=== PATIENT | female | born 1950 | race Asian ===

== ENCOUNTER 2020-04-19 15:52 | Outpatient (REF) | payer MEDICARE, SELFPAY ==
--- NOTE | 2020-04-19 15:56 | MM_ITS ---
EXAMINATION: MM SCREENING DIGITAL BREAST TOMOSYNTHESIS, BILATERAL CLINICAL INFORMATION: Screening. Asymptomatic. The lifetime risk of breast cancer based on the Tyrer-Cuzick Model is 2%. COMPARISON: Mammography: 02/04/2019, 02/02/2018, 01/21/2017 TECHNIQUE: Digital mammography is performed in craniocaudal and mediolateral oblique views along with computer-aided detection (CAD). Digital breast tomosynthesis is performed in implant-displaced craniocaudal and implant-displaced mediolateral oblique views along with computer-aided detection (CAD). Synthesized 2D images are generated from the tomosynthesis. FINDINGS: There are scattered areas of fibroglandular density (ACR BI-RADS breast composition Category b). There are no significant masses, abnormal calcifications, or other abnormalities. The implant contours are smooth and similar to prior studies. There are some incidental benign capsular calcification on the left. No developing density. The skin contours are smooth. No significant changes. MM/MM tomosynthesis screen imp BI IMPRESSION: No mammographic evidence of malignancy. ASSESSMENT: BI-RADS 2: Benign RECOMMENDATION: Routine annual mammography screening. This patient's information was entered into a reminder system with a target due date for their next mammogram.
== END 2020-04-19 15:53 | disposition home or self-care (01) ==
LOC: HO.MAMMO 15:52
PROVIDERS: PCP Nurse Practitioner Family; Visit Provider Nurse Practitioner Family
DX: Z12.31 Encounter for screening mammogram for malignant neoplasm of breast (principal)
CPT/HCPCS: 77063; 77067

== ENCOUNTER 2021-05-03 15:54 | Outpatient (REF) | payer MEDICARE, SELFPAY ==
--- NOTE | ~2021-05-03 | MM_ITS ---
EXAMINATION: MM SCREENING DIGITAL BREAST TOMOSYNTHESIS, BILATERAL CLINICAL INFORMATION: Screening. Asymptomatic. The lifetime risk of breast cancer based on the Tyrer-Cuzick Model is 2%. COMPARISON: Mammography: 04/19/2020, 02/04/2019, 02/02/2018 TECHNIQUE: Digital mammography is performed in craniocaudal and mediolateral oblique views along with computer-aided detection (CAD). Digital breast tomosynthesis is performed in implant-displaced craniocaudal and implant-displaced mediolateral oblique views along with computer-aided detection (CAD). Synthesized 2D images are generated from the tomosynthesis. FINDINGS: There are scattered areas of fibroglandular density (ACR BI-RADS breast composition Category b). There are no significant masses, abnormal calcifications, or other abnormalities. There are bilateral implants. Implant contours are similar to prior study. Again, there is some benign coarse capsular calcification of the left implant. The axilla and skin contours are unremarkable. MM/MM tomosynthesis screen imp BI IMPRESSION: No mammographic evidence of malignancy. ASSESSMENT: BI-RADS 2: Benign RECOMMENDATION: Routine annual mammography screening. This patient's information was entered into a reminder system with a target due date for their next mammogram.
== END 2021-05-03 15:55 | disposition home or self-care (01) ==
LOC: HO.MAMMO 15:54
PROVIDERS: PCP Nurse Practitioner Family; Visit Provider Nurse Practitioner Family
DX: Z12.31 Encounter for screening mammogram for malignant neoplasm of breast (principal)
CPT/HCPCS: 77063; 77067

== ENCOUNTER 2022-05-15 14:26 | Outpatient (REF) | payer MEDICARE, SELFPAY ==
--- NOTE | ~2022-05-15 | MM_ITS ---
EXAMINATION: MM SCREENING DIGITAL BREAST TOMOSYNTHESIS, BILATERAL CLINICAL INFORMATION: Screening. Asymptomatic. The lifetime risk of breast cancer based on the Tyrer-Cuzick Model is 2%. COMPARISON: Mammography: 05/03/2021, 04/19/2020, 02/04/2019 TECHNIQUE: Digital mammography is performed in craniocaudal and mediolateral oblique views along with computer-aided detection (CAD). Digital breast tomosynthesis is performed in implant-displaced craniocaudal and implant-displaced mediolateral oblique views along with computer-aided detection (CAD). Synthesized 2D images are generated from the tomosynthesis. FINDINGS: There are scattered areas of fibroglandular density (ACR BI-RADS breast composition Category b). There are no significant masses, abnormal calcifications, or other abnormalities. There are bilateral implants. The implant contours are similar to prior studies. There are some benign coarse capsular calcifications overlying the left implant. There is no developing density or architectural abnormality or significant changes from prior studies. MM/MM tomosynthesis screen imp BI IMPRESSION: No mammographic evidence of malignancy. ASSESSMENT: BI-RADS 2: Benign RECOMMENDATION: Routine annual mammography screening. This patient's information was entered into a reminder system with a target due date for their next mammogram.
--- NOTE | ~2022-05-15 | MM_ITS ---
EXAMINATION: BONE DENSITOMETRY CLINICAL INDICATION: Osteoporosis. COMPARISON: Previous BD dated 02/04/2019 and baseline BD dated 03/19/2007. TECHNIQUE: Using a [employer] DXA System (software version: 13.1) manufactured by [employer], dual-energy x-ray absorptiometry was performed of the lumbar spine and left hip. The images are of good technical quality. Summary results are attached. FINDINGS: AP SPINE L1-L4: Current: BMD 1.023 g/cm2, Z-score 0.8, T-score -1.3, osteopenia, 9.6% increase from previous, 0.5% decrease from baseline (<5% change is not significant). Prior: BMD 0.933 g/cm2. Baseline: BMD 1.028 g/cm2. LEFT FEMUR, NECK: Current: BMD 0.763 g/cm2, Z-score 0.1, T-score -2.0, osteopenia. Prior: BMD 0.673 g/cm2. Baseline: BMD 0.788 g/cm2. LEFT FEMUR, TOTAL: Current: BMD 0.877 g/cm2, Z-score 0.9, T-score -1.0, normal, 11.7% increase from previous, 1.5% increase from baseline (<5% change is not significant). Prior: BMD 0.785 g/cm2. Baseline: BMD 0.864 g/cm2. IDENTIFIED RISK FACTORS: Bilateral oophorectomy, hysterectomy, low calcium intake, menopause. HISTORY OF FRACTURE: None listed. MEDICATIONS: Calcium, vitamin D, bisphosphonate. MM/XR DEXA axial skeleton IMPRESSION: 1. DIAGNOSIS: Osteopenia based on the lowest T-score value of -2.0 in the femoral neck applying World Health Organization criteria. 2. 10-YEAR FRACTURE RISK PREDICTION, FRAX: Not performed in this patient on estrogen or bone building treatments. 3. Treatment Recommendations: NOF guidelines recommend consideration for treatment in postmenopausal women and men age 50 and older presenting with the following: -A hip or vertebral (clinical or morphometric) fracture. -T-score less than or equal to -2.5 at the femoral neck or spine after appropriate evaluation to exclude secondary causes. -Low bone mass at the hip or spine and a 10-year fracture probability by FRAX of greater than or equal to 3% for hip fracture or greater than or equal to 20% for major osteoporotic fracture based on the [place] adapted WHO algorithm. 4. Other Recommendations: All treatment decisions require clinical judgment and consideration of individual patient factors, including patient preferences, comorbidities, previous drug use, risk factors not captured in the FRAX model (e.g. frailty, falls, vitamin D deficiency, increased bone turnover, interval significant decline in bone density) and possible under or overestimation of fracture risk by FRAX. Additional medical evaluation for secondary cause of low bone mineral density may be appropriate. FUTURE SCAN RECOMMENDATION: People with diagnosed cases of osteoporosis or at high risk for fracture should have regular bone mineral density tests. For patients eligible for Medicare, routine testing is allowed once every 2 years. The testing frequency can be increased to one year for patients who have rapidly progressing disease, those who are receiving or discontinuing medical therapy to restore bone mass, or have additional risk factors.
== END 2022-05-15 14:27 | disposition home or self-care (01) ==
LOC: HO.MAMMO 14:26
PROVIDERS: PCP Internal Medicine; Visit Provider Nurse Practitioner Family
DX: Z12.31 Encounter for screening mammogram for malignant neoplasm of breast (principal); Z13.820 Encounter for screening for osteoporosis; Z78.0 Asymptomatic menopausal state; M81.0 Age-related osteoporosis without current pathological fracture
CPT/HCPCS: 77063; 77067; 77080

== ENCOUNTER → 2023-04-06 13:21 | Outpatient (BNVA) | payer MEDICARE, SELFPAY | PROVIDERS: PCP Internal Medicine; Visit Provider Nurse Practitioner Family ==

== ENCOUNTER 2023-05-21 14:18 | Outpatient (REF) | payer MEDICARE, SELFPAY ==
--- NOTE | ~2023-05-21 | MM_ITS ---
EXAMINATION: MM SCREENING DIGITAL BREAST TOMOSYNTHESIS, BILATERAL WITH BREAST IMPLANTS CLINICAL INFORMATION: Screening. Asymptomatic. COMPARISON: Mammography: This study is compared with prior mammograms dating back to 2019. TECHNIQUE: Digital mammography is performed in craniocaudal and mediolateral oblique views along with computer-aided detection (CAD). Digital breast tomosynthesis is performed in implant-displaced craniocaudal and implant-displaced mediolateral oblique views along with computer-aided detection (CAD). Synthesized 2D images are generated from the tomosynthesis. FINDINGS: The breasts are almost entirely fatty (ACR BI-RADS breast composition Category a). There are no significant masses, abnormal calcifications, or or other mammographic signs of malignancy. MM/MM tomosynthesis screen imp BI IMPRESSION: There are no significant changes from prior study. ASSESSMENT: BI-RADS BI-RADS 1 - Negative RECOMMENDATION: Routine annual mammography screening. 1 year F/U This patient's information was entered into a reminder system with a target due date for their next mammogram.
== END 2023-05-21 14:19 | disposition home or self-care (01) ==
LOC: HO.MAMMO 14:18
PROVIDERS: PCP Internal Medicine; Visit Provider Internal Medicine
DX: Z12.31 Encounter for screening mammogram for malignant neoplasm of breast (principal)
CPT/HCPCS: 77063; 77067

== ENCOUNTER → 2023-05-21 14:30 | Outpatient (BNV) | payer MEDICARE, SELFPAY | PROVIDERS: PCP Internal Medicine; Visit Provider Radiology Diagnostic Radiology | DX: Z12.31 Encounter for screening mammogram for malignant neoplasm of breast (principal) | CPT/HCPCS: 77063; 77067 ==

== ENCOUNTER 2023-09-07 07:06 | Day surgery (SDC) | payer MEDICARE, SELFPAY ==
[2023-09-03 10:49] VITALS: BMI 22.1
[2023-09-07 07:20] VITALS: BMI 22.3
--- NOTE | 2023-09-07 07:34 | MHC.SHP ---
Pre-Procedural Eval Section A - 24 Hr Update-Section A only Date of Service: 09/07/23 The patient is an INPATIENT: No The patient has been examined within 24 hours of the surgical procedure. The History & Physical has been completed within 30 days and I have reviewed it.: No Section B - Complete if H&P > 30 days Chief Complaint: Colon cancer screening Relevant Family History (Specify if Yes): No Relevant Social History: None Present Medications: see Short Stay Collaborative assessment Medical History: Significant History (Osteopenia Hypercholesteremia) History of Previous Operations: Relevant previous surgery/procedure and date(s) (History of colonoscopy) Allergies: Allergies Allergy/AdvReac Type Severity Reaction Status Date / Time Penicillins Allergy Unknown Unknown Verified 04/06/23 13:30 Review of Systems Sugical H&P ROS: Negative: Constitution, Cardiovascular, Respiratory and Gastrointestinal Exam Surgical H&P Exam: Normal: Heart, Normal: Lungs, Normal: Extremities and Normal: Abdomen Plan Diagnosis/Plan: Unchanged I have reviewed the history and physical and performed a pertinent physical examination on my patient. No changes have occurred unless specified. Time Spent With Patient Time: Total time managing care of this patient today ____ minutes.
[2023-09-07 07:36] VITALS: BP 158/69; PULSE 91; RESP 16; TEMP 36.8; O2SAT 99
[2023-09-07] MEDS: Lactated Ringers 1,000 ML 50 ML IVCONT (07:46)
--- NOTE | 2023-09-07 08:40 | HO.ANESPROP2 ---
[facility] Past Medical History Medical History (Updated 04/06/23 @ 13:42 by Monet Smith [facility]) Osteopenia Hypercholesteremia Family History Family history of problems with anesthesia: No Surgical History Surgical History (Updated 09/07/23 @ 08:01 by Amy Haskins RN) H/O toe surgery History of colonoscopy History of Problems with Anesthesia: No Social History Social History Alcohol intake: never Patient Tobacco Use Status: Never used Tobacco Use of substances other than those prescribed or required for medical reasons: No Are you DNR?: No Advance Directives: No Advance Directives Information Provided: Yes Meds Allergies Allergy/AdvReac Type Severity Reaction Status Date / Time Penicillins Allergy Unknown Unknown Verified 04/06/23 13:30 Active Medications: Current Medications Lactated Ringer's (Lr) 1,000 mls @ 50 mls/hr IVCONT .Q20H JOCELIN Last Admin: 09/07/23 07:46 Dose: 50 mls/hr Home Medications ?Medication ?Instructions ?Recorded ?Confirmed ?Last Taken ?Type aspirin 81 mg tablet,delayed 81 mg PO DAILY 04/06/23 09/03/23 Unknown History release (Adult Aspirin Regimen) cholecalciferol (vitamin D3) 25 25 mcg PO DAILY 04/06/23 09/03/23 Unknown History mcg (1,000 unit) capsule magnesium 600 mg PO DAILY 04/06/23 09/03/23 Unknown History multivitamin 1 tab PO DAILY 04/06/23 09/03/23 Unknown History omega-3 fatty acids-fish oil 300 1 cap PO DAILY 04/06/23 09/03/23 Unknown History mg-500 mg capsule (Fish Oil) risedronate 35 mg tablet 35 mg PO QWEEK 04/06/23 09/03/23 Unknown History rosuvastatin 10 mg tablet 10 mg PO BEDTIME 04/06/23 09/03/23 Unknown History vitamin B complex (B 1 tab PO DAILY 04/06/23 Unknown History Complex-Vitamin B12 tablet) Exam Height,Weight and Vital Signs: Height 5 ft 1 in Weight 53.581 kg Last Vital Signs Temp 98.2 F 09/07/23 07:36 Pulse 91 09/07/23 07:36 Resp 16 09/07/23 07:36 BP 158/69 H 09/07/23 07:36 Pulse Ox 99 09/07/23 07:36 O2 Del Method Room Air 09/07/23 07:36 Airway Mallampati Class: II TM Dist: >3cm Neck ROM: Full Heart: rrr Lungs: cta Assessment and Plan Assessment Anesthesia Assessment: Anesthesia Plan Discussed and Chart Reviewed Final Anesthetic Review Family History of Problems with Anesthesia: No History of Problems with Anesthesia: No NPO: Yes ASA Class: II Final Preanesthetic Review: No Changes in Pt Med Stat, Meds/Allgs Chart Reviewed and Consent Obtained/Reviewed Patient Risk: Low Procedure Risk: Low Anesthetic Plan Anesthetic Plan: MAC: Disposition: Standard PACU
[2023-09-07 09:15] VITALS: BP 99/51; PULSE 69; RESP 16; TEMP 36.1; O2SAT 97
--- NOTE | 2023-09-07 09:16 | P.OPN-COLO_ITS ---
Colonoscopy Operative Note Operative Note Date of Service: 09/07/23 Narrative: COLONOSCOPY TILL CECUM WITH BIOPSIES Pre-op diagnosis: Colon cancer screening (2nd colonoscopy). Post-op diagnosis:? colon polyps, Diverticulosis, hemorrhoids Endoscopist:? Santiago Stinson MD Anesthesia:?MAC Consent: Indications for the procedure and potential complications of bleeding, perforation, reaction to medications and missed diagnosis were discussed with the patient and informed consent was obtained. Instrument: Olympus PCF H 190 L variable stiffness pediatric colonoscope Monitoring: Vital signs and clinical assessment, intermittent blood pressure monitoring, continuous EKG monitoring, Pulse oximetry and Carbon Dioxide monitoring were done throughout the procedure. Please see anesthesia flowsheet. Colon withdrawl time was 13 minutes. Procedure: The patient was placed in the left lateral decubitis position and pre-procedure medications were administered. After a digital rectal examination of the ano-rectum, the video colonoscope was inserted into the rectum and advanced through the colon to the cecum. The colonoscope was slowly withdrawn in a retrograde panoramic fashion and the colon mucosa was carefully examined including a retroflexed view of the rectum. Findings and interventions are described below. Procedure Difficulty: without difficulty Findings: Terminal Ileum: Not evaluated Cecum: Normal Ascending Colon: Normal Transverse Colon: Normal Descending Colon: Moderate diverticulosis Sigmoid Colon: A 5-6 mm diminutive appearing polyp versus fold at 50 cms - biopsied. A 3-4 mm sessile polyp at 20 cms - removed with a cold biopsy. Moderate diverticulosis Rectum: Normal Ano-rectum: Small internal hemorrhoids and hypertrophied anal papillae Colon preparation: Excellent. [place] Bowel Preparation Scale Right colon; 3 Transverse colon: 3 Left colon; 3 (0 = Unprepared colon segment with mucosa not seen due to solid stool that cannot be cleared. 1 = Portion of mucosa of the colon segment seen, but other areas of the colon segment not well seen due to staining, residual stool and/or opaque liquid. 2 = Minor amount of residual staining, small fragments of stool and/or opaque liquid, but mucosa of colon segment seen well. 3 = Entire mucosa of colon segment seen well with no residual staining, small fragments of stool or opaque liquid) Impression and Post Procedure Diagnosis: Colonoscopy Findings: One small polyp was removed A 5-6 mm diminutive appearing polyp versus fold at 50 cms - biopsied. Moderate diverticulosis seen in the left colon Small hemorrhoids on retroflexed exam. Plan: Pt has a FU appointment on 09/21/23 with Gloria Smith NP Repeat Colonoscopy in 5 years if polyps are adenomatous and 10 year if polyps are hyperplastic. Above findings were reviewed with the patient and relevant handouts were given and the discharge area.
[2023-09-07 09:20] VITALS: BP 103/55; PULSE 64; RESP 14; O2SAT 98
[2023-09-07 09:25] VITALS: BP 111/57; PULSE 65; RESP 17; O2SAT 97
[2023-09-07 09:30] VITALS: BP 117/69; PULSE 76; RESP 15; TEMP 36.1; O2SAT 100
[2023-09-07 09:45] VITALS: BP 130/67; PULSE 75; RESP 14; TEMP 36.1; O2SAT 100
== END 2023-09-07 10:05 | disposition home or self-care (01) ==
PROVIDERS: PCP Internal Medicine; Visit Provider Internal Medicine Gastroenterology
PROC: 0DJD8ZZ Inspection of Lower Intestinal Tract, Via Natural or Artificial Opening Endoscopic (ICD-10-PCS; CPT 45378; principal; 2023-09-07 08:30)
DX: Z12.11 Encounter for screening for malignant neoplasm of colon (principal); D12.5 Benign neoplasm of sigmoid colon; K57.30 Diverticulosis of large intestine without perforation or abscess without bleeding; K64.8 Other hemorrhoids; E78.00 Pure hypercholesterolemia, unspecified
CPT/HCPCS: 45380; 88305; J2704

== ENCOUNTER → 2023-09-07 07:06 | Outpatient (BNV) | payer MEDICARE, SELFPAY | PROVIDERS: PCP Internal Medicine; Visit Provider Internal Medicine Gastroenterology | DX: Z12.11 Encounter for screening for malignant neoplasm of colon (principal); D12.5 Benign neoplasm of sigmoid colon; K57.90 Diverticulosis of intestine, part unspecified, without perforation or abscess without bleeding; K64.8 Other hemorrhoids | CPT/HCPCS: 45380 ==

== ENCOUNTER 2024-06-07 12:26 | Outpatient (REF) | payer MEDICARE, SELFPAY ==
--- NOTE | ~2024-06-07 | MM_ITS ---
EXAMINATION: DXA BONE DENSITY AXIAL HISTORY: Estrogen deficiency TECHNIQUE: [employer] Dual energy absorptiometry (DEXA) of the lumbar spine, total left hip, and femoral neck was performed. COMPARISON: Comparison is made with the prior examination dated 05/15/2022. FINDINGS: The bone mineral density of the lumbar spine is 0.962 with a T-score of -1.7, and a Z-score of 0.4. This represents a BMD change of -0.8% compared to the prior exam. This is not statistically significant. The bone mineral density of the left total hip is 0.892 with a T-score of -0.9, and a Z-score of 1.1. This represents a BMD change of 1.7% compared to the prior exam. This is not statistically significant. The bone mineral density of the left femoral neck is 0.770 with a T-score of -1.9, and a Z-score of 0.2. This represents a BMD change of 0.9% compared to the prior exam. FRACTURE RISK: The FRAX index suggests a ten year probability of major osteoporotic fracture of 7.2%, and of hip fracture 1.9%. MM/XR DEXA axial skeleton IMPRESSION: Based on bone mineral density, and according to World Health Organization (WHO) criteria, the diagnosis is consistent with osteopenia. All bone density values are in grams per centimeter squared (g/cm2). Statistically, 68% of repeat scans fall within 1 SD (+/- 0.010 g/cm2 for AP spine L1-L4) and 1 SD (+/- 0.012 g/cm2 for femur total) FRAX is a trademark of the [employer] Met[employer], a World Health Organization (WHO) Collaborating Center. Electronically signed by: Pa Rendon MD 06/07/2024 02:55 PM EDT
--- OUTSIDE RECORDS SUMMARY | 2024-06-07 14:42 | XMS_ITS | Clinical Summary ---
Author Organization [facility] Address [address] [place] [address] Care Team Providers Care Control Director Name Role Phone Unavailable Primary Care Provider Unavailabl e Allergies Active Allergy Reactions Criticality Noted Date Comments Other Swelling 01/12/2018 Dirt Medications rosuvastatin (Crestor) 10 MG tablet Take 10 mg by mouth in the morning. 04/14/2022 Active risedronate (Actonel) 35 MG tablet Take 35 mg by mouth every 7 (seven) days. 04/14/2022 Active Multiple Vitamins-Mineral s (Oncovite) tablet Take 1 tablet by mouth in the morning. Active magnesium oxide (Mag-Ox) 400 MG tablet Take by mouth daily. Active cholecalciferol (Vitamin D-3) 50 MCG (2000 UT) capsule Take 2,000 Units by mouth in the morning. Active aspirin 81 MG EC tablet Take 81 mg by mouth in the morning. Active calcium carbonate (Tums) 250 mg (yankton 100 mg) chewable split tablet Take 500 mg by mouth in the morning. Active Immunizations Name Administration Dates Next Due Influenza High-dose Quadriva lent Preservative Free 01/01/2022,01/11/2020 Influenza Quadrivalent Adjuvanted 01/02/2021 Influenza, High Dose Seasona l, Preservative Free 01/20/2019,01/12/2018,01/08/2016 Influenza, IIV3, injectable 12/23/2013, 2,02/26/2011 Influenza, seasonal, intrade rmal, preservative free 12/15/2012 Pneumococcal Conjugate PCV 13 12/29/2014 Pneumococcal Polysaccharide PPSV23 01/20/2019, Tdap 12/16/2019 Zoster, Recombinant 05/02/2020,01/24/2020 Zoster, live 01/08/2016 Social History Tobacco Use Types Packs/Day Years Used Date Smoking Tobacco: Never Assessed Comments Unknown Sex and Gender Information Value Date Recorded Sex Assigned at Female 07/01/2022 10:01 AM EDT Legal Sex Female 9:54 AM EDT Gender Identity Female 07/01/2022 10:01 AM EDT Sexual Orientation Choose not to disclose 2022 10:01 AM EDT Last Filed Vital Signs Vital Sign Reading Time Taken Comments Blood Pressure 138/82 07/01/2022 1:07 PM EDT Pulse - - Temperature - - Respiratory Rate - - Oxygen Saturation - - Inhaled Oxygen Concentration - - Weight - - Height - - Body Mass Index - - Plan of Treatment Health Maintenance Due Date Last Done Comments CT Colonography 1949 Colonoscopy 1949 Colorectal Cancer Screening 1949 Dental Oral Exam 1949 Dental Prophylaxis 1949 Dental X-Ray: Full Mouth 1949 Depression Screening 1949 FIT DNA/Cologuard 1949 FIT 1949 FOBT 1949 SDOH Screening 1949 Sigmoidoscopy 1949 Alcohol/Substance Use Screening 1961 Tobacco Screening 1961 Hepatitis C Screening 1967 Dental X-Ray: Bitewings 07/03/2023 07/01/2022 COVID-19 Vaccine ( season) 2023 01/01/2022, 07/04/2021, 12/26/2020, Additional history exists Influenza Vaccine (#1) 2023 , 01/02/2021, 01/11/2020, Additional history exists RSV Patients and Patients Aged 60 years or older (1 - 1-dose 75+ series) 2024 DTaP/Tdap/Td Vaccines (2 - Td or Tdap) 12/15/2029 12/16/2019 Pneumococcal Vaccine: 50+ Years Completed 01/20/2019, 12/29/2014, 12/23/2013 Zoster Vaccines Completed 05/02/2020, 11/0 05/2019, 01/08/2016 HIB Vaccines Aged Out No longer eligi ble based on patient's age to complete this topic HPV Vaccines Aged Out No longer eligi ble based on patient's age to complete this topic Hepatitis A Vaccines Aged Out No long er eligible based on patient's age to complete this topic Hepatitis B Vaccines Aged Out No long er eligible based on patient's age to complete this topic IPV Vaccines Aged Out No longer eligi ble based on patient's age to complete this topic Meningococcal Vaccine Aged Out No arlene joann eligible based on patient's age to complete this topic RSV under 20 months Aged Out No longe r eligible based on patient's age to complete this topic Rotavirus Vaccines Aged Out No longer eligible based on patient's age to complete this topic Procedures Procedure Name Priority Date/Time Associated Diagnosis Comments BITEWING - SINGLE RADIOGRAPHIC IMAGE Routine 07/01/2022 1:00 PM EDT Dental abscess from Last 3 Months or Most Recently Relevant to Health Maintenance Insurance [facility]
--- OUTSIDE RECORDS SUMMARY | 2024-06-07 14:42 | XMS_ITS | Clinical Summary ---
Author Organization [facility] [address] [place] [address] [place] [address] Phone Care Team Providers Care Softball Player Name Role Phone Nunu Stinson MD Primary Care Provider [phone] Allergies No known active allergies Medications aspirin 81 mg EC tablet Take 1 tablet (81 mg total) by mouth 1 (one) time each day. Active CALCIUM CARBONATE ORAL Calcium Carbonate 500 (200 Ca) MG Wafer Sig - Route: Take ??by mouth. - Oral Class: Historic Active magnesium oxide (MAG-OX) 400 mg magnesium tablet Take by mouth. Active cholecalciferol (VITAMIN D-3) 25 mcg (1,000 unit) capsule Take by mouth. Activ e multivit-min/iron /folic acid/K (ADULTS MULTIVITAMIN ORAL) Take by mouth. Activ e rosuvastatin (CRESTOR) 10 mg tablet Take 1 tablet (10 mg total) by mouth 1 (one) time each day. 90 tablet 1 Active Encounters Date Type Department Care Team Description 04/18/2024 Telephone Adult Medicine [address] [phone] Nunu Stinson MD 04/12/2024 3:00 PM EST Office Visit Adult [address] [phone] Nunu Stinson MD PE (physical exam), annual (Primary Dx); Mixed hyperlipidemia; Other specified disorders of bone density and structure, other site; Prediabetes; Callus; Ingrown toenail without infection from Last 3 Months Immunizations Name Administration Dates Next Due COVID-19 (Moderna/Spikevax) 12yo and older 10/20/2022,01/01/2022 Influenza trivalent, 0.5mL ( Fluad) 65yo and older 11/28/2023,12/03/2022,01/01/2022,01/02,01/11/2020,01/20/2019,01/12/2018 ,01/08/2016 Pneumococcal conjugate 13 va lent (Prevnar 13, PCV13) 2mo and older 12/29/2014 Pneumococcal polysaccharide 23 valent (Pneumovax 23) 2yo and older 01/20/2019,12/23/2013 RSV, bivalent, protein subun it RSVpreF, 0.5mL, Preservative Free (Arexvy) 60yo and older 12/27/2022 Respiratory syncytial virus (RSV), unspecified 12/27/2022 Tdap Tetanus diptheria acell ular pertussis (Boostrix; Adacel) 7yo and older 12/16/2019 Zoster Live 01/08/2016 Zoster recombinant (Shingrix ) 19yo and older 05/02/2020,01/24/2020 Surgical History Surgery Date Site/Laterality Comments HYSTERECTOMY Medical History Medical History Date Comments Hyperlipidemia Family History Medical History Relation Name Comments Heart disease Brother Heart attack Mother Relation Name Status Comments Brother Mother Social History Tobacco Use Types Packs/Day Years Used Date Smoking Tobacco: Never Smokeless Tobacco: Never Tobacco Cessation:Counseling Given: Not Answered Alcohol Use Standard Drinks/Week Comments Not Currently 0 (1 standard drink = 0.6 oz pur e alcohol) Housing Instability Answer Date Recorde d Are you worried that in the next 2 months you may not have stable housing? No 04/12/2024 Food Access & Nutrition Answer Date Rec orded Do you have access to a vari ety of food including fruits and vegetables? Yes 04/12/2024 Health Literacy Answer Date Recorded How often do you need to hav e someone help you when you read instructions, pamphlets, or other written material from your doctor or pharmacy? Never 04/12/2024 Caregiver: How often do you need to have someone help you when you read instructions, pamphlets, or other written material from your doctor or pharmacy? Not on file 04/12/2024 Financial Risk Answer Date Recorded How hard is it for you to pa y for the very basics like food, housing, medical care, and air conditioning / heating? Not very hard 04/12/2024 Transportation Answer Date Recorded Has the lack of transportati on kept you from meetings, work, or from getting things needed for daily living? No Has the lack of transportati on kept you from medical appointments or from getting medications? No 04/12/2024 Social Isolation Answer Date Recorded How often do you feel lonely or isolated from th ose around you? Never 04/12/2024 Food Risk Answer Date Recorded Within the past 12 months we worried whether our food would run out before we got money to buy more. Never true 04/12/2024 Within the past 12 months th e food we bought just didn? t last and we didn? t have money to get more. Not on file 04/12/2024 Dependent Care Answer Date Recorded Do you need help finding or paying for care for your loved ones. For example, childbirth and infant care teacher or elderly care for an older adult? No 04/12/2024 Education Answer Date Recorded Do you think completing more education or training, like finishing a GED, going to college, or learning a trade, would be helpful for you? No 04/12/2024 Employment and Income Answer Date Recor ded During the last four weeks, have you been actively looking for work? No 04/12/2024 Living Situation Answer Date Recorded What is your living situation? 0 04/12/2024 Comments No Sex and Gender Information Value Date Recorded Sex Assigned at Not on file Legal Sex Female 11:07 AM EDT Gender Identity Not on file Sexual Orientation Not on file Obstetrics History Last Filed Vital Signs Vital Sign Reading Time Taken Comments Blood Pressure 124/72 04/12/2024 3:27 PM EST Pulse 80 04/12/2024 3:27 PM EST Temperature 36.4 ??C (97.5 ??F) 04/12/2024 3:27 PM ES T Respiratory Rate 14 04/12/2024 3:27 PM EST Oxygen Saturation - - Inhaled Oxygen Concentration - - Weight 51.7 kg (114 lb) 04/12/2024 3:27 PM EST Height 154.9 cm (5' 1 ) 04/12/2024 3:27 PM EST Body Mass Index 21.54 04/12/2024 3:27 PM EST Plan of Treatment Upcoming Encounters Date Type Department Care Team (Late st Contact Info) Description 10/11/2024 2:30 PM EDT Office Visit Adult Medicine [facility] [address] [place] [phone] Nunu Stinson MD [address] [place] [address] Health Maintenance Due Date Last Done Comments Diabetes: Annual Foot Exam 1959 Diabetes: Annual Retina Eye Exam 1959 Falls Risk Assessment 10/23/2023 Medicare Annual Wellness Visit 10/23/2023 Osteoporosis Screening (Bone Density Screening) 10/23/2023 Diabetes: Annual Urine Albumin-Creatinine Ratio (uACR) 04/12/2024 Diabetes: Blood Sugar Control Test (HGBA1C) 10/10/2024 04/12/2024, 09/03/2023, 01/27/2023 Depression Screening 04/12/2025 04/12/2024 Diabetes: Annual GFR (Glomerular Filtration Rate) 04/12/2025 04/12/2024, 09/03/2023, 03/26/2022, Additional history exists Hypertension/CHF/CAD Annual BMP Blood Test 04/12/2025 04/12/2024, 09/03/2023, 03/26/2022, Additional history exists Social Influencers of Health Screening 04/12/2025 04/12/2024 Colorectal Cancer Screening: Colonoscopy 09/06/2028 09/07/2023 Cholesterol Screening (Lipid Panel) 04/12/2029 04/12/2024, 09/03/2023 DTaP,Tdap,and Td Vaccines (2 - Td or Tdap) 12/15/2029 12/16/2019 Hepatitis C Screening Completed 02/20/2017 Pneumococcal Vaccine: 50+ Years Completed 01/20/2019, 12/29/2014, 12/23/2013 Zoster Vaccines Completed 05/02/2020, 05/2019, 01/08/2016 RSV Immunization Patients 60+ Years Old Completed 12/27/2022, 12/27/2022 RSV Immunization Patients Under 20 months Aged Out 12/27/2022 No longer eligible based on patient's age to complete this topic COVID-19 Vaccine Completed 11/28/2023, 09/2022, 10/20/2022, Additional history exists Influenza Vaccine Completed 11/28/2023, , 01/01/2022, Additional history exists HIB Vaccines Aged Out No longer eligi [...] on patient's age to complete this topic MMR Vaccines Aged Out No longer eligi ble based on patient's age to complete this topic Meningococcal ACWY Vaccine Aged Out N o longer eligible based on patient's age to complete this topic Meningococcal B Vacine Aged Out No lo nger eligible based on patient's age to complete this topic Varicella Vaccines Aged Out No longer eligible based on patient's age to complete this topic Procedures Procedure Name Priority Date/Time Associated Diagnosis Comments CBC WITH AUTO DIFFERENTIAL Routine 04/12/2024 4:21 PM EST Mixed hyperlipidemia HEMOGLOBIN A1C Routine 04/12/2024 4:21 PM EST Prediabetes LIPID PANEL WITH REFLEX TO DIRECT LDL Routine 04/12/2024 4:21 PM EST Mixed hyperlipidemia COMPREHENSIVE METABOLIC PANEL Routine 04/12/2024 4:21 PM EST PE (physical exam), annual CBC AND DIFFERENTIAL Routine 04/12/2024 4:21 PM EST Mixed hyperlipidemia HM COLONOSCOPY Routine 09/07/2023 from Last 3 Months or Most Recently Relevant to Health Maintenance Results * Lipid panel with reflex to direct LDL (04/12/2024 4:21 PM EST) Cholesterol 191 0 - 200 mg/dL LAB CHEMISTRY METHOD 04/12/2024 7:08 PM EST [facility] Triglycerides 119 0 - 150 mg/dL LAB CHEMISTRY METHOD 04/12/2024 7:[address] [facility] HDL 72 >=40 mg/dL LAB CHEMISTRY METHOD 04/12/2024 7:[address] [facility] LDL Calculated 95 0 - 100 mg/dL LAB CHEMISTRY METHOD 04/12/2024 7:[address] [facility] VLDL Cholesterol Mich 23.8 mg/dL LAB CHEMISTRY METHOD 04/12/2024 7:[address] [facility] Non HDL Chol. (LDL+VLDL) 119 <145 mg/dL LAB CHEMISTRY METHOD 04/12/2024 7:[address] [facility] Chol/HDL Ratio 2.7 0.0 - 4.4 LAB CHEMISTRY METHOD 04/12/2024 7:[address] [facility] Blood Venous blood specimen / Unknown Venipuncture / Unknown 04/12/2024 4:21 PM EST 04/12/2024 4:21 PM EST us Nunu Stinson MD LAB BLOOD ORDERABLES Final Resul t [facility] [address] [place] [address], [place] [phone] * (ABNORMAL) CBC auto differential (04/12/2024 4:21 PM EST) WBC 6.9 4.8 - 10.8 K/mcL LAB HEMETOLOGY METHOD 04/12/2024 6:[address] [facility] RBC 4.80 3.80 - 4.80 M/mcL LAB HEMETOLOGY METHOD 04/12/2024 6:[address] [facility] Hemoglobin 13.1 11.5 - 16.0 g/dL LAB HEMETOLOGY METHOD 04/12/2024 6:[address] [facility] Hematocrit 42.2 35.0 - 47.0 % LAB HEMETOLOGY METHOD 04/12/2024 6:[address] [facility] MCV 88.5 79.0 - 98.0 FL LAB HEMETOLOGY METHOD 04/12/2024 6:[address] [facility] MCH 27.5 27.0 - 32.0 pcg LAB HEMETOLOGY METHOD 04/12/2024 6:[address] [facility] MCHC 31.0(L) 32.0 - 37.0 g/dL LAB HEMETOLOGY METHOD 04/12/2024 6:[address] [facility] RDW 13.3 11.0 - 15.0 % LAB HEMETOLOGY METHOD 04/12/2024 6:[address] [facility] Platelets 268 130 - 400 K/mcL LAB HEMETOLOGY METHOD 04/12/2024 6:[address] [facility] MPV 9.6 7.0 - 11.0 FL LAB HEMETOLOGY METHOD 04/12/2024 6:[address] [facility] NRBC 0.0 <1.0 % LAB HEMETOLOGY METHOD 04/12/2024 6:[address] [facility] NRBC Absolute 0.00 <0.10 K/mcL LAB HEMETOLOGY METHOD 04/12/2024 6:[address] [facility] Neutrophils Relative 46.7 % LAB HEMETOLOGY METHOD 04/12/2024 6:[address] [facility] Lymphocytes Relative 43.0 % LAB HEMETOLOGY METHOD 04/12/2024 6:[address] [facility] Monocytes Relative 8.1 % LAB HEMETOLOGY METHOD 04/12/2024 6:[address] [facility] Eosinophils Relative 1.5 % LAB HEMETOLOGY METHOD 04/12/2024 6:[address] [facility] Basophils Relative 0.6 % LAB HEMETOLOGY METHOD 04/12/2024 6:[address] [facility] Immature Granulocytes Relative 0.1 % LAB HEMETOLOGY METHOD 04/12/2024 6:36 PM EST [facility] Neutrophils Absolute 3.22 1.50 - 7.00 K/[facility] LAB HEMETOLOGY METHOD 04/12/2024 6:36 PM EST [facility] Lymphocytes Absolute 2.96 1.00 - 5.00 K/mcL LAB HEMETOLOGY METHOD 04/12/2024 6:36 PM EST [facility] Monocytes Absolute 0.56 0.20 - 1.00 K/mcL LAB HEMETOLOGY METHOD 04/12/2024 6:36 PM EST [facility] Eosinophils Absolute 0.10 0.00 - 0.50 K/[facility] HEMETOLOGY METHOD 04/12/2024 6:36 PM EST [facility] Basophils Absolute 0.04 0.00 - 0.20 K/mcL LAB HEMETOLOGY METHOD 04/12/2024 6:36 PM EST [facility] Immature Granulocytes Absolute 0.01 0.00 - 0.03 K/[facility] HEMETOLOGY METHOD 04/12/2024 6:[address] [facility] Blood Venous blood specimen / Unknown Venipuncture / Unknown 04/12/2024 4:21 PM EST 04/12/2024 4:21 PM EST us Nunu Stinson MD LAB BLOOD ORDERABLES Final Resul t [facility] [address] [place] [address], * Hemoglobin A1c (04/12/2024 4:21 PM EST) Hemoglobin A1C 6.3 <6.5 % LAB CHEMISTRY METHOD 04/12/2024 9:42 PM EST [facility] Mean Bld Glu Estim. 134 mg/dL LAB CHEMISTRY METHOD 04/12/2024 9:42 PM EST [facility] Blood Venous blood specimen / Unknown Venipuncture / Unknown 04/12/2024 4:21 PM EST 04/12/2024 4:21 PM EST us Nunu Stinson MD LAB BLOOD ORDERABLES Final Resul t [facility] [address] [place] [address], * (ABNORMAL) Comprehensive metabolic panel (04/12/2024 4:21 PM EST) Sodium 138 133 - 145 mmol/L LAB CHEMISTRY METHOD 04/12/2024 7:[address] [facility] Potassium 4.5 3.5 - 5.5 mmol/L LAB CHEMISTRY METHOD 04/12/2024 7:[address] [facility] Chloride 106 96 - 110 mmol/L LAB CHEMISTRY METHOD 04/12/2024 7:[address] [facility] CO2 28 21 - 32 mmol/L LAB CHEMISTRY METHOD 04/12/2024 7:[address] [facility] Anion Gap 4 3 - 11 LAB CHEMISTRY METHOD 04/12/2024 7:[address] [facility] Glucose 94 70 - 100 mg/dL LAB CHEMISTRY METHOD 04/12/2024 7:[address] [facility] BUN 17 5 - 25 mg/dL LAB CHEMISTRY METHOD 04/12/2024 7:[address] [facility] Creatinine 0.79 0.50 - 1.10 mg/dL LAB CHEMISTRY METHOD 04/12/2024 7:[address] [facility] eGFR 78 >=60 mL/min/1. 73m2 LAB CHEMISTRY METHOD 04/12/2024 7:[address] [facility] Comment:Calculation based on the??Chronic Kidney Disease Epidemiology Collaboration (CKD-EPI) equation refit??without adjustment for race. BUN/Creatinine Ratio 21.5 LAB CHEMISTRY METHOD 04/12/2024 7:[address] [facility] Calcium 9.2 8.5 - 10.5 mg/dL LAB CHEMISTRY METHOD 04/12/2024 7:[address] [facility] AST (SGOT) 23 10 - 42 unit/L LAB CHEMISTRY METHOD 04/12/2024 7:[address] [facility] ALT (SGPT) 28 10 - 60 unit/L LAB CHEMISTRY METHOD 04/12/2024 7:[address] [facility] Alkaline Phosphatase 64 42 - 121 unit/L LAB CHEMISTRY METHOD 04/12/2024 7:[address] [facility] Total Protein 7.7 6.0 - 8.0 g/dL LAB CHEMISTRY METHOD 04/12/2024 7:[address] [facility] Albumin 4.2 3.2 - 5.0 g/dL LAB CHEMISTRY METHOD 04/12/2024 7:[address] [facility] Total Bilirubin 1.8(H) 0.0 - 1.4 mg/dL LAB CHEMISTRY METHOD 04/12/2024 7:[address] [facility] Blood Venous blood specimen / Unknown Venipuncture / Unknown 04/12/2024 4:21 PM EST 04/12/2024 4:21 PM EST Nunu Stinson MD LAB BLOOD ORDERABLES Final Resul t [facility] [address] [place] [address], * Colonoscopy (09/07/2023) Colonoscopy no interpretation , abstracted Anatomical Region Laterality Modality Other Historical Provider HEALTH MAINTENANCE Final Result from Last 3 Months or Most Recently Relevant to Health Maintenance Insurance [employer] Care Teams Softball Player Relationship Specialty Start Date End Date Nunu Stinson MD PCP - General 09/04/23
--- OUTSIDE RECORDS SUMMARY | 2024-06-07 14:42 | XMS_ITS | Encounter Summary ---
Author Organization [facility] Address [address] [place] [address] Care Team Providers Care Administrative Secretary Name Role Phone Nunu Stinson MD Primary Care Provider [phone] Encounter Details Date Type Department Care Team (Late st Contact Info) Description 04/18/2024 Telephone Adult Medicine [facility] [address] [place] [phone] Nunu Stinson MD [address] [place] [address] Social History Tobacco Use Types Packs/Day Years Used Date Smoking Tobacco: Never Smokeless Tobacco: Never Alcohol Use Standard Drinks/Week Comments Not Currently [...] care for your loved ones. For example, child's nurse or elderly care for an older adult? [...] on file Sexual Orientation Not on file documented as of this encounter Plan of Treatment Upcoming Encounters Date Type Department Care Team (Late st Contact Info) Description 10/11/2024 2:30 PM EDT Office Visit Adult Medicine [address] [phone] Nunu Stinson MD [address] [place] [phone] documented as of this encounter Visit Diagnoses Not on filedocumented in this encounter Additional Health Concerns Assessment Noted Time PHQ-9 Depression Total Score: 0 04/12/19 25 3:31 PM EST documented as of this encounter Care Teams Administrative Secretary Relationship Specialty Start Date End Date Nunu Stinson MD PCP - General 09/04/23 documented as of this encounter
== END 2024-06-07 12:27 | disposition home or self-care (01) ==
LOC: HO.MAMMO 12:26
PROVIDERS: PCP Internal Medicine; Visit Provider Internal Medicine
DX: Z12.31 Encounter for screening mammogram for malignant neoplasm of breast (principal); Z13.820 Encounter for screening for osteoporosis; M85.80 Other specified disorders of bone density and structure, unspecified site; E28.39 Other primary ovarian failure
CPT/HCPCS: 77063; 77067; 77080

== ENCOUNTER → 2024-06-07 13:00 | Outpatient (BNV) | payer MEDICARE, SELFPAY | PROVIDERS: PCP Internal Medicine; Visit Provider Radiology Diagnostic Radiology | DX: E28.39 Other primary ovarian failure (principal) | CPT/HCPCS: 77080 ==